=== PATIENT | female | born 1990 | race Caucasian/White ===

== ENCOUNTER 2018-09-06 15:04 | Emergency (ER) | payer OTHER ==
[2018-09-06] MEDS: LIDOCAINE 1% (MDV) 20 ML INJ SC (15:47)
[2018-09-06] MEDS: HYDROCODONE/APAP (5/325) TAB PO (16:01)
== END 2018-09-06 16:49 | disposition home or self-care (01) ==
LOC: FTE 15:04
DX: L02.411 Cutaneous abscess of right axilla (principal)
CPT/HCPCS: 10060; 99283-25

== ENCOUNTER 2018-09-08 11:46 | Emergency (ER) | payer OTHER ==
[2018-09-08] MEDS: CEFTRIAXONE 1 GM/50 ML (PMX) 50 ML IVPB (13:21)
[2018-09-08] MEDS: TRIMETHOPRIM/SULFAMETHOX (DS) TAB PO (13:21)
[2018-09-08] MEDS: KETOROLAC 15 MG INJ IV (13:42)
== END 2018-09-08 14:20 | disposition home or self-care (01) ==
LOC: FTE 11:46
DX: L03.113 Cellulitis of right upper limb (principal)
CPT/HCPCS: 96365; 96375; 99284-25

== ENCOUNTER 2018-09-11 10:38 | Emergency (ER) | payer OTHER | END 2018-09-11 12:12 | disposition home or self-care (01) | LOC: FTE 10:38 | DX: Z48.01 Encounter for change or removal of surgical wound dressing (principal) | CPT/HCPCS: 99281; Z7502 ==